=== PATIENT | female | born 1960 | race Caucasian/White ===

== ENCOUNTER 2017-05-07 17:13 | Emergency (ER) | payer BC ==
[~2017-05-07] VITALS: Ht 149.9 cm; Wt 97.8 kg
[~2017-05-07 17:13] MED LIST: LOPRESSOR25 MG PO; MOTRIN600 MG PO
[2017-05-07 18:32] LABS: ADD MIUA? YES; BILIRUBIN NEGATIVE; BLOOD MODERATE; COLOR YELLOW ((YELLOW)); GLUCOSE (STRIP) NEGATIVE; KETONES NEGATIVE; LEUKOCYTES NEGATIVE; NITRITE NEGATIVE; PROTEIN (STRIP) NEGATIVE; SPECIFIC GRAVITY 1.016 (1.000-1.030); UROBILINOGEN 0.2 MG/DL (0.2-1.0)
[2017-05-07 18:42] LABS: BACTERIA NONE SEEN /HPF; EPITHELIAL CELLS 1+ /HPF; MUCUS TRACE /LPF; UCUL ADDED? NO; WHITE BLOOD CELLS 0-5 /HPF (0-5)
[2017-05-07 18:55] LABS: INTERNAL CONTROL VALID? YES
[2017-05-07 19:10] LABS: HEMATOCRIT 35.8 % (36.0-46.0); MCH 30.1 PG (29.0-34.0); MCHC 33.2 G/DL (30.0-36.0); MCV 90.6 FL (83-99); MEAN PLAT.VOLUME 9.6 uM^3 (9.5-12.4); PLATELET COUNT 226 K/uL (156-360); RBC DIS.WIDTH-CV 11.9 % (11.8-14.6); RBC DIS.WIDTH-SD 39.5 % (39-53); RED BLOOD COUNT 3.95 M/uL (3.80-5.20); WHITE BLOOD COUNT 9.8 K/uL (4.1-10.2)
[2017-05-07 19:18] LABS: CHLORIDE 105 mEq/L (99-109); POTASSIUM 4.2 mEq/L (3.7-5.4); SODIUM 140 mEq/L (136-147)
[2017-05-07 19:20] LABS: GLUCOSE 104 mg/dL (70-99)
[2017-05-07 19:21] LABS: ANION GAP 9 MEQ/L (2-14)
[2017-05-07 19:23] LABS: GFR ESTIMATE (CALCULATED) > 59 mL/min/
[2017-05-07 19:24] LABS: UREA NITROGEN (BUN) 14 mg/dL (9-23)
[2017-05-07] MEDS ORDERED: ZITHROMAX Z-PA250 MG PO (19:35)
[2017-05-07 20:01] VITALS: BP 118/60
== END 2017-05-07 20:04 | disposition home or self-care (01) ==
LOC: EME 17:13
PROVIDERS: Physician Assistant
DX: J06.9 Acute upper respiratory infection, unspecified (principal); E11.9 Type 2 diabetes mellitus without complications; I10 Essential (primary) hypertension; Z87.891 Personal history of nicotine dependence
CPT/HCPCS: 71020; 80048; 81003; 85027; 87081; 87278; 87449; 99281; 99284